=== PATIENT | male | born 1990 | race Hispanic/Latino ===

== ENCOUNTER 2023-12-23 10:12 | Emergency (ER) | payer OTHER, BC ==
[2023-12-23] MEDS ORDERED: IBUPROFEN 400 MG TAB ONE (10:21)
--- NOTE | 2023-12-23 11:21 | RAD REPORT ---
Exam:Hand Left 3 View CLINICAL HISTORY: Left hand pain FINDINGS: Avulsion fracture terminal tuft first digit. No dislocation
[2023-12-23] MEDS ORDERED: AMOX/K CLAV 875 MG TAB ONE (12:00)
--- NOTE | 2023-12-23 12:36 | ER ---
Nurse's Notes [facility] Name: Dameon Moreno Age: 33 yrs Sex: Male : 1990 Arrival Date: 12/23/2023 Time: 10:12 Bed 14 Private MD: Diagnosis: Nondisplaced fracture of distal phalanx of left thumb, initial encounter for open fracture;Laceration without foreign body of left thumb without damage to nail, initial encounter Presentation: 12/22 10:14 Chief complaint: EMS states: VSS. 20 G R hand. Coronavirus screen: Client denies travel ll1 out of the [place] in the last 14 days. At this time, the client does not indicate any symptoms associated with coronavirus-19. Ebola Screen: Patient denies travel to an Ebola-affected area in the 21 days before illness onset. Initial Sepsis Screen: Does the patient meet any 2 criteria? No. Patient's initial sepsis screen is negative. Does the patient have a suspected source of infection? No. Patient's initial sepsis screen is negative. Risk Assessment: Do you want to hurt yourself or someone else? Patient reports no desire to harm self or others. Onset of symptoms was December 23, 2023. 10:14 Method Of Arrival: EMS: [email or web address] ll1 10:14 Acuity: SUZANNE 3 ll1 10:14 Chief complaint: Patient states: Crushed L thumb between two supports at work just PICKING TABLE WORK[employer]. ll[address] Triage Assessment: 10:15 General: Appears uncomfortable, Behavior is calm, cooperative, appropriate for age. ll1 Pain: Complains of pain in L thumb Pain currently is 8 out of 10 on a pain scale. Quality of pain is described as aching, throbbing. Derm: Reports laceration tip of thumb. Musculoskeletal: Circulation, motion, and sensation intact. Capillary refill < 3 seconds, in left fingers. Injury Description: Crush injury. Historical: - Allergies: 10:14 No Known Allergies; ll1 - Home Meds: 10:14 None [Active]; ll1 - PMHx: 10:14 None; ll1 - PSHx: 10:14 None; ll1 - Immunization history:: Adult Immunizations up to date. - Infectious Disease History:: Denies. - Social history:: Smoking status: Patient denies any tobacco usage or history of. - Family history:: not pertinent. - Hospitalizations: : No recent hospitalization is reported. Screenin:27 [facility] ED Fall Risk Assessment (Adult) History of falling in the last 3 months, ll1 including since admission No falls in past 3 months (0 pts) Confusion or Disorientation No (0 pts) Intoxicated or Sedated No (0 pts) Impaired Gait No (0 pts) Mobility Assist Device Used No (0 pt) Altered Elimination No (0 pt) Score/Fall Risk Level 0 - 2 = Low Risk Maintained a safe environment, Hourly rounding (assess needs \T\ fall precautionary measures) done. Abuse screen: Denies threats or abuse. Nutritional screening: No deficits noted. Tuberculosis screening: No symptoms or risk factors identified. Assessment: 10:26 Reassessment: No changes from previously documented assessment. Patient and/or family ll1 updated on plan of care and expected duration. Pain level reassessed. Patient is alert, oriented x 3, equal unlabored respirations, skin warm/dry/pink. 11:24 Reassessment: No changes from previously documented assessment. Patient and/or family ll1 updated on plan of care and expected duration. Pain level reassessed. Patient is alert, oriented x 3, equal unlabored respirations, skin warm/dry/pink. 12:02 Reassessment: No changes from previously documented assessment. Patient and/or family ll1 updated on plan of care and expected duration. Pain level reassessed. Patient is alert, oriented x 3, equal unlabored respirations, skin warm/dry/pink. Vital Signs: 10:14 BP 109 / 77; Pulse 61; Resp 17; Temp 98(TE); Pulse Ox 99% on R/A; Pain 8/10; ll1 11:04 BP 130 / 87; Pulse 74; Resp 16; Pulse Ox 100% on R/A; ll1 11:23 Weight 86.18 kg; Height 5 ft. 6 in. ; ll1 11:24 BP 125 / 87; Pulse 71; Resp 17; Pulse Ox 98% ; ll1 12:57 BP 133 / 87; cm10 11:23 Body Mass Index 30.67 (86.18 kg, 167.64 cm) ll1 10:14 Pain Scale: Adult ll1 ED Course: 10:13 Patient arrived in ED. rn 10:13 Juan Pablo Rader MD is Attending Physician. rn 10:14 Marycruz Ballard, RN is Primary Nurse. ll1 10:14 Arm band placed on Patient placed in an exam room, on a stretcher. ll1 10:15 No provider procedures requiring assistance completed. Maintain EMS IV. Dressing ll1 intact. Good blood return noted. Site clean \T\ dry. Gauge \T\ site: 20 G R hand. Flushed with 10 mL NS. 10:16 Triage completed. ll1 10:27 Patient has correct armband on for positive identification. Bed in low position. ll1 Provided Education on: ER procedures and process. Cardiac monitoring not applicable on this patient. 10:57 XRAY Hand LEFT 3 View In Process Unspecified. EDMS 12:18 Primary Nurse role handed off by Marycruz Ballard RN cm10 12:18 Nieves Patel, PRINCESS is Primary Nurse. cm10 12:56 IV discontinued, intact, bleeding controlled, No redness/swelling at site. Pressure cm10 dressing applied. Dressings: Kerlix X 1; dorsal aspect of distal phalanx of left thumb non-adherent dressing x 1 dorsal aspect of distal phalanx of left thumb. Administered Medications: 10:25 Drug: Ibuprofen PO 800 mg PO once Route: PO; ll1 11:24 Follow up: Response: No adverse reaction; Pain is decreased ll1 12:02 Drug: Amoxicillin-Clavulanate PO 875 mg PO once Route: PO; ll1 12:57 Follow up: Response: No adverse reaction cm10 Medication: 10:28 VIS not applicable for this client. ll1 Outcome: 12:35 Discharge ordered by . rn 12:56 Discharged to home ambulatory, cm10 12:56 Condition: good 12:56 Discharge instructions given to patient, Instructed on discharge instructions, follow up and referral plans. wound care, Demonstrated understanding of instructions, follow-up care, wound care, 12:57 Patient left the ED. cm10 Signatures: Dispatcher [employer] EDMS Juan Pablo Rader MD MD rn Lewis, Lynsay, RN RN ll1 Nieves Patel RN RN cm10 Corrections: (The following items were deleted from the chart) 11:21 10:14 BP 109 / 77; Pulse 61bpm; Resp 17bpm; Pulse Ox 99% RA; Pain 8/10, Adult; ll1 ll1
--- NOTE | 2023-12-23 12:36 | EDPHYS ---
Physician Documentation [facility] Name: Dameon Moreno Age: 33 yrs Sex: Male : 1990 Arrival Date: 12/23/2023 Time: 10:12 Bed 14 Private MD: ED Physician Juan Pablo Rader HPI: 12/22 10:14 This 33 yrs old Male presents to ER via Unassigned with complaints of crush injury. rn 10:14 The patient or guardian reports injury, Laceration. The complaints affect the Tip of rn left thumb. Onset: The symptoms/episode began/occurred just prior to arrival. Modifying factors: The symptoms are alleviated by nothing, the symptoms are aggravated by movement, dependent position. Severity of symptoms: At their worst the symptoms were mild, in the emergency department the symptoms are unchanged. Patient reports accidental crush injury at work, got thumb caught between 2 solid objects. Is right-handed. Suffered laceration to the tip of the left thumb.. Historical: - Allergies: 10:14 No Known Allergies; ll1 - Home Meds: 10:14 None [Active]; ll1 - PMHx: 10:14 None; ll1 - PSHx: 10:14 None; ll1 - Immunization history:: Adult Immunizations up to date. - Infectious Disease History:: Denies. - Social history:: Smoking status: Patient denies any tobacco usage or history of. - Family history:: not pertinent. - Hospitalizations: : No recent hospitalization is reported. ROS: 10:14 Constitutional: Negative for fever, chills, and weight loss, MS/Extremity: Positive rn positive for contusion and laceration to the left thumb Exam: 10:14 Constitutional: This is a well developed, well nourished patient who is awake, alert, rn and in no acute distress. MS/ Extremity: Pulses equal, no cyanosis. Neurovascular intact. Irregular laceration, stellate shaped, to the tip of the left thumb, subungual hematoma approximately 40% of the nail. No active bleeding. No foreign body. Vital Signs: 10:14 BP 109 / 77; Pulse 61; Resp 17; Temp 98(TE); Pulse Ox 99% on R/A; Pain 8/10; ll1 11:04 BP 130 / 87; Pulse 74; Resp 16; Pulse Ox 100% on R/A; ll1 11:23 Weight 86.18 kg; Height 5 ft. 6 in. ; ll1 11:24 BP 125 / 87; Pulse 71; Resp 17; Pulse Ox 98% ; ll1 12:57 BP 133 / 87; cm10 11:23 Body Mass Index 30.67 (86.18 kg, 167.64 cm) ll1 10:14 Pain Scale: Adult ll1 MDM: 10:13 Patient medically screened. rn 11:40 ED course: Patient with distal tuft fracture of the left thumb, overlying laceration. rn Spoke with patient and truck safety inspector as well as plant doctor Dr. Shaw, my recommendation is to transfer for open fracture and proper care with antibiotics as he needs a hand surgeon. Dr. Shaw is going to contact a hand surgeon that they usually use and try to get patient either transferred or followed up immediately upon discharge.. 12:33 Differential diagnosis: open fracture, closed fracture. Data reviewed: vital signs, rn nurses notes, radiologic studies, plain films, and as a result, I will admit patient. ED course: Offered transfer for possible open fracture, truck safety inspector and doubt physician Dr. Shaw have organized with a hand surgeon. They request patient be discharged and they are taking him to hand surgeon immediately for irrigation and laceration repair. Antibiotics given here. Confirmed with truck safety inspector that they are taking immediately to hand surgeon. Patient understands that he needs to see a hand surgeon immediately for proper care and minimize infection. 12/22 10:13 Order name: XRAY Hand LEFT 3 View; Complete Time: 11:31 rn Administered Medications: 10:25 Drug: Ibuprofen PO 800 mg PO once Route: PO; ll1 11:24 Follow up: Response: No adverse reaction; Pain is decreased ll1 12:02 Drug: Amoxicillin-Clavulanate PO 875 mg PO once Route: PO; ll1 12:57 Follow up: Response: No adverse reaction cm10 Disposition Summary: 12/23/23 12:35 Discharge Ordered Notes: Location: Home rn Problem: new rn Symptoms: have improved rn Condition: Stable rn Diagnosis - Nondisplaced fracture of distal phalanx of left thumb, initial encounter for open rn fracture - Laceration without foreign body of left thumb without damage to nail, initial rn encounter Followup: rn - With: Private Physician - When: Upon discharge from the Emergency Department - Reason: Wound Recheck, Recheck today's complaints, Re-evaluation by your physician Discharge Instructions: - Discharge Summary Sheet rn - Finger Fracture, Adult rn - Laceration Care, Adult rn Forms: - Medication Reconciliation Form rn - Antibiotic dehorner - Prescription Opioid Use rn - Patient Portal Instructions rn - Leadership Thank You Letter rn Signatures: Dispatcher [employer] Juan Pablo Adame MD MD rn Lewis, Lynsay, RN RN ll1 Nieves Patel RN cm10
[2023-12-24 01:34] VITALS: TEMP 98
[2023-12-24 01:38] VITALS: O2SAT 98
[2023-12-24 01:39] VITALS: BP 133/87
== END 2023-12-23 12:57 | disposition home or self-care (01) ==
LOC: ER 10:12
DX: S62.525B Nondisplaced fracture of distal phalanx of left thumb, initial encounter for open fracture (principal)
CPT/HCPCS: 99284